=== PATIENT | female | born 1950 | race Caucasian/White ===

== ENCOUNTER 2017-04-03 13:31 | Emergency (ER) | payer OTHER, MEDICARE ==
[2017-04-03 13:48] VITALS: BP 137/73; TEMP 97.7; O2SAT 97
--- NOTE | 2017-04-03 14:36 | EDPHY ---
H & P Time Seen by Provider: 04/03/17 13:39 HPI/ROS: This patient come planes of a laceration to the left 2nd finger sustained while chopping vegetables for her lasagna shortly prior to arrival at home. She reports mild pain and moderate bleeding to the distal phalanx of the left index finger-her non dominant hand. The bleeding slowed with direct pressure prior to arrival. She is accompanied by her . The incident occurred 2 hours prior to arrival. ROS: Neuro: No numbness or tingling except mild tingling distal to the laceration on the affected finger. Cardiovascular: No significant pallor beyond the wound. No lightheadedness 5 point ROS is otherwise negative Past Medical/Surgical History: Tetanus is up-to-date Otherwise healthy in Social History: Retired RN Smoking Status: Never smoked Physical Exam: Physical Exam Vital signs are normal. General: No acute distress Cardiac: Brisk capillary refill is intact throughout. Skin: No rash or pallor. Extremities: Atraumatic normal except for left 2nd finger Left 2nd finger: Patient has a 1.3 cm full-thickness laceration to the distal phalanx-palmar aspect of the finger with mild bleeding, subcutaneous tissues evident but no deeper structures are injured. Neuro: Alert with no sensorimotor deficits except for marginal 2 point discrimination in the affected finger tip Constitutional: Initial Vital Signs Temperature (C) 36.5 C 04/03/17 13:45 Heart Rate 60 04/03/17 13:45 Respiratory Rate 14 04/03/17 13:45 Blood Pressure 137/73 H 04/03/17 13:45 O2 Sat (%) 97 04/03/17 13:45 O2 Delivery Mode Room Air Allergies/Adverse Reactions: No Known Allergies Allergy (Verified 04/03/17 13:49) Home Medications: Medication Instructions Recorded CELECOXIB [Celebrex] 100 mg PO 12/03/10 LEVOTHYROXINE SODIUM [Synthroid] 75 mcg PO 12/03/10 MDM/Departure - MDM Procedures: Digital block: After verbal consent, using a 50 50 mix of 0.5% Marcaine 2% plain lidocaine, 27 gauge needle, chlorhexidine scrub under sterile conditions- 3 injections were administered to the base of the affected finger, 8 mL with good effect. Patient tolerated this well. There were no complications. The wound is 1.3 cm full-thickness. The wound was copiously irrigated with saline. The wound was explored for foreign bodies and none were found. The wound was prepped and draped in the normal sterile fashion. The wound was anesthetized using Digital block: After verbal consent, using a 50 50 mix of 0.5% Marcaine 2% plain lidocaine, 27 gauge needle, chlorhexidine scrub under sterile conditions-3 injections were administered to the base of the affected finger, 8 mL with good effect. Patient tolerated this well. There were no complications. The edges were reapproximated using 4 0 Ethilon-4 running sutures with good hemostasis and cosmesis. The patient tolerated the procedure well. There were no complications. Patient is placed in tube gauze dressing and counseled regarding wound care. ED Course/Re-evaluation: Discussion: Uncomplicated finger laceration except for possible minimal sensory nerve injury the finger tip. I counseled patient regarding this. - Depart Disposition: Home, Routine, Self-Care Clinical Impression: Finger laceration Qualifiers: Encounter type: initial encounter Finger: index finger Damage to nail status: unspecified Foreign body presence: without foreign body Laterality: left Qualified Code(s): S61.211A - Laceration without foreign body of left index finger without damage to nail, initial encounter Condition: Good Instructions: Finger Laceration (ED) Additional Instructions: Diagnosis: Finger laceration Plan: Keep the wound clean and dry for the next 2 days. Then removed the dressing and clean daily with warm soapy water Return for suture removal in 10-12 days Ibuprofen Tylenol for discomfort as needed Return sooner for redness, discharge or other concerns for infection. Enjoy your visit with your nursing colleagues! Referrals: Jada Robertson MD [Primary Care Provider] - As per Instructions
[2017-04-03 14:53] VITALS: PULSE 62; RESP 16
== END 2017-04-03 14:51 | disposition home or self-care (01) ==
LOC: CED 13:31
PROC: 0HQGXZZ Repair Left Hand Skin, External Approach (ICD-10-PCS; principal; 2017-04-03)
DX: S61.211A Laceration without foreign body of left index finger without damage to nail, initial encounter (principal); W26.9XXA Contact with unspecified sharp object(s), initial encounter; Y92.009 Unspecified place in unspecified non-institutional (private) residence as the place of occurrence of the external cause; Y99.8 Other external cause status; Y93.89 Activity, other specified

== ENCOUNTER → 2018-10-14 | Outpatient (CLI) | payer OTHER, MEDICARE | LOC: BRMIMAGING 07:30 | PROVIDERS: ATTEND Nurse Practitioner Family | DX: K82.4 Cholesterolosis of gallbladder (principal); N20.0 Calculus of kidney; I70.0 Atherosclerosis of aorta | CPT/HCPCS: 76705-PO ==

== ENCOUNTER → 2018-10-22 | Outpatient (CLI) | payer OTHER, MEDICARE | LOC: CIMAGING 15:05 | PROVIDERS: ATTEND Family Medicine | DX: R22.1 Localized swelling, mass and lump, neck (principal) | CPT/HCPCS: 76536-PO ==